=== PATIENT | female | born 1945 | race Caucasian/White ===

== ENCOUNTER 2022-11-16 08:22 | Outpatient (CLI) | payer MEDICARE, BC, SELFPAY ==
--- NOTE | 2022-11-16 11:30 | CRLHL7_ITS ---
For Patients: As a result of the Century Cures Act, medical imaging exams and procedure reports are released immediately into your electronic medical record. You may view this report before your referring provider. If you have questions, please contact your health care provider. BILATERAL SCREENING MAMMOGRAM WITH COMPUTER-AIDED DETECTION AND TOMOSYNTHESIS TECHNIQUE: CC and MLO views were obtained. These mammographic images have been obtained using full-field digital technique. These mammographic images were interpreted with the benefit of computer-aided detection. Breast Tomosynthesis was used in this interpretation. COMPARISON FILM: 10/30/21, 10/05/20, 09/24/19. FINDINGS: There are scattered areas of fibroglandular density IMPRESSION: There is no radiographic evidence for malignancy. ASSESSMENT: BI-RADS Category 1: Negative RECOMMENDATION: Routine screening mammogram in 1 year. A lay language report of this examination will be provided to the patient. Vance Nolan M.D. Diagnostic Radiologist [email or web address] KELLEY/Dictated by: Vance Nolan MD @ 11/16/2022 11:24:00 AM (Electronically Signed)
== END 2022-11-16 08:23 | disposition home or self-care (01) ==
LOC: MAMMO 08:23
PROVIDERS: PCP Family Medicine; Visit Provider Family Medicine
DX: Z12.31 Encounter for screening mammogram for malignant neoplasm of breast (principal)
CPT/HCPCS: 77063; 77067

== ENCOUNTER 2023-11-26 09:08 | Outpatient (CLI) | payer MEDICARE, BC, SELFPAY ==
--- NOTE | 2023-11-26 09:15 | MM_ITS ---
Patient: JON MEDLEY Facility:?[facility] Patient ID:?[id number] Site Patient ID:?[id number]. Site :?[id number] Study:?XRay-Brachial Plexus Bilateral 3D screening mammogram -11/26/2023 9:41:59 AM Ordering Physician:Shantal Final Report: BILATERAL SCREENING MAMMOGRAM WITH COMPUTER-AIDED DETECTION AND TOMOSYNTHESIS TECHNIQUE: CC and MLO views were obtained. These mammographic images have been obtained using full-field digital technique. These mammographic images were interpreted with the benefit of computer-aided detection. Breast Tomosynthesis was used in this interpretation. COMPARISON FILM: 11/16/22, 10/30/21, 10/05/20. FINDINGS: There are scattered areas of fibroglandular density. IMPRESSION: There is no radiographic evidence for malignancy. ASSESSMENT: BI-RADS Category 2: Benign RECOMMENDATION: Routine screening mammogram in 1 year. A lay language report of this examination will be provided to the patient. Vance Nolan M.D. Diagnostic Radiologist [email or web address] DSM/sp R& Transcribed: 1:59 p.m. SP/Dictated by: Vance Nolan MD @ 11/26/2023 10:42:00 AM Signed by:?Vance Nolan MD @11/26/2023 2:34:42 PM (Electronic Signature)
== END 2023-11-26 09:09 | disposition home or self-care (01) ==
LOC: MAMMO 09:09
PROVIDERS: PCP Family Medicine; Visit Provider Family Medicine
DX: Z12.31 Encounter for screening mammogram for malignant neoplasm of breast (principal)
CPT/HCPCS: 77063; 77067

== ENCOUNTER 2024-11-27 09:11 | Outpatient (CLI) | payer MEDICARE, BC, SELFPAY ==
--- NOTE | 2024-11-27 09:50 | P.ANES_ITS ---
Anesthesia Charges Start Date/Time Anesthesia Start Date: 11/27/24 Anesthesia Start Time: 10:00 Stop Date/Time Anesthesia Stop Date: 11/27/24 Anesthesia Stop Time: 10:37 Summary Extremes of Age - Over 70 or under 1: CLINICAL BIOCHEMICAL GENETICIST Coding CPT Codes CPT Codes: ANES UPR LWR GI NDSC PX - 76047 ([id number]) P3 - PATIENT W/SEVERE SYS DISEASE, QK - CAR PICK UP DRIVER 2-4 CNCRNT ANES PROC, QX - CLINICAL BIOCHEMICAL GENETICIST SVC W/ MD MED DIRECTION Additional Codes: Summary - Extremes of Age - Over 70 or under 1: CLINICAL BIOCHEMICAL GENETICIST ([id number])
--- NOTE | 2024-11-27 09:50 | W.ANESCHARGE ---
Anesthesia Charges Start Date/Time Anesthesia Start Date: 11/27/24 Anesthesia Start Time: 10:00 Stop Date/Time Anesthesia Stop Date: 11/27/24 Anesthesia Stop Time: 10:37 Summary Extremes of Age - Over 70 or under 1: PRINTER SMALL PRINT SHOP Coding CPT Codes CPT Codes: ANES UPR LWR GI NDSC PX - 04519 ([id number]) P3 - PATIENT W/SEVERE SYS DISEASE, QK - PATROL OFFICER 2-4 CNCRNT ANES PROC, QX - PRINTER SMALL PRINT SHOP SVC W/ MD MED DIRECTION Additional Codes: Summary - Extremes of Age - Over 70 or under 1: PRINTER SMALL PRINT SHOP ([id number])
--- NOTE | 2024-11-27 10:53 | W.ANESCHARGE ---
Anesthesia Charges Start Date/Time Anesthesia Start Date: 11/27/24 Anesthesia Start Time: 10:00 Stop Date/Time Anesthesia Stop Date: 11/27/24 Anesthesia Stop Time: 10:37 Summary Extremes of Age - Over 70 or under 1: MDA Coding CPT Codes CPT Codes: ANES UPR LWR GI NDSC PX - 48661 ([id number]) QK - NARROW GAUGE OPERATOR 2-4 CNCRNT ANES PROC, QX - SUPERVISOR PAINTING SVC W/ MD MED DIRECTION, P3 - PATIENT W/SEVERE SYS DISEASE Additional Codes: Summary - Extremes of Age - Over 70 or under 1: MDA ([id number])
== END 2024-11-27 09:12 | disposition home or self-care (01) ==
LOC: OP CLINIC 09:12
PROVIDERS: PCP Family Medicine; Visit Provider Internal Medicine Gastroenterology
DX: D50.9 Iron deficiency anemia, unspecified (principal); K44.9 Diaphragmatic hernia without obstruction or gangrene; D12.5 Benign neoplasm of sigmoid colon
CPT/HCPCS: 00813; 43239; 45385; 88305; 99100; J2704; J3490

== ENCOUNTER 2024-12-30 14:47 | Outpatient (CLI) | payer MEDICARE, BC, SELFPAY ==
--- NOTE | 2024-12-30 15:20 | CRLHL7_ITS ---
For Patients: As a result of the Century Cures Act, medical imaging exams and procedure reports are released immediately into your electronic medical record. You may view this report before your referring provider. If you have questions, please contact your health care provider. INDICATION: BILATERAL SCREENING MAMMOGRAM, ASYMPTOMATIC 79 Y/O FEMALE COMPARISON: 11/26/2023, 11/16/2022, 10/30/2021 TECHNIQUE: Digital mammogram in CC and MLO projections including computer-aided detection (CAD) and tomosynthesis. BREAST COMPOSITION: The breasts are almost entirely fatty. FINDINGS: No suspicious findings. ASSESSMENT: BI-RADS 1 Negative RECOMMENDATION: Annual screening mammogram. A lay language report of this examination will be provided to the patient. Dictated by: Vance Nolan MD @ 12/31/2024 09:36:05 (Electronically Signed)
== END 2024-12-30 14:48 | disposition home or self-care (01) ==
LOC: MAMMO 14:48
PROVIDERS: PCP Family Medicine; Visit Provider Family Medicine
DX: Z12.31 Encounter for screening mammogram for malignant neoplasm of breast (principal)
CPT/HCPCS: 77063; 77067